=== PATIENT | female | born 1985 | race Caucasian/White ===

== ENCOUNTER 2019-12-13 08:31 | Emergency (ER) | payer OTHER, BC ==
--- NOTE | 2019-12-13 09:12 | EDM.PDOC ---
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 She said when she fell her right foot was under her left knee, and during her fall she hit her kneecap on the ground. She has some discomfort and pain with walking but she is able to bear weight without much difficulty. She also feels a clicking sensation in the right lateral knee, discussed this with our HR department and it was recommended she come to the emergency room for evaluation. No other injury other than the right knee. Onset: Sudden Duration: Hour(s): (Within the last 2 hours) Location: Reports: Lower Extremity, Right Quality: Reports: Ache Worsens with: Reports: Other (Weightbearing), Movement Associated Symptoms: Reports: Other (Clicking sensation in the right knee when walking) - Related Data Allergies Allergy/AdvReac Type Severity Reaction Status Date / Time bee venom protein (honey bee) Allergy Anaphylactic Verified 12/13/19 08:48 Shock codeine Allergy Rash Verified 12/13/19 08:48 epinephrine Allergy Other Verified 12/13/19 08:48 lidocaine Allergy Rash Verified 12/13/19 08:48 Home Meds: Home Meds NK [No Known Home Meds] 12/13/19 [History] Past Medical History - Past Surgical History Head Surgeries/Procedures: Reports: None Social & Family History - Tobacco Use Tobacco Use Status *Q: Never Tobacco User Second Hand Smoke Exposure: No Review of Systems - Review of Systems Review Of Systems: See Below Constitutional: Denies: Fever Respiratory: Reports: No Symptoms Cardiovascular: Reports: No Symptoms GI/Abdominal: Reports: No Symptoms Skin: Reports: Other (Abrasion on the knee) Neurological: Denies: Paresthesia ED EXAM, GENERAL - Physical Exam Exam: See Below Exam Limited By: No Limitations General Appearance: Alert, No Apparent Distress Head: Atraumatic Respiratory/Chest: No Respiratory Distress Extremities: Other (Remainder of exam was limited to the right leg. There is a very superficial abrasion over the patella, no erythema or laceration. No significant effusion of the knee. On palpation she is tender along the superior lateral pole of the patella but is able to extend the knee and hold against gravity without difficulty. Some discomfort when stressing the lateral component of the knee) Neurological: Alert, Oriented Psychiatric: Normal Affect, Normal Mood Course - Vital Signs Last Recorded V/S: Last Vital Signs Temp 98.5 F 12/13/19 08:52 Pulse 92 12/13/19 08:52 Resp 16 12/13/19 08:52 BP 150/90 H 12/13/19 08:52 Pulse Ox 98 12/13/19 08:52 - Re-Assessments/Exams Free Text/Narrative Re-Assessment/Exam: 12/13/19 09:11 Right knee x-ray was obtained. 12/13/19 09:36 Knee x-ray looks normal. Patient was with a 4 inch Nabil wrap to support the knee and can resume normal activity as tolerated. Recheck next week if not improving satisfactorily. Return sooner if worsening such as significant swelling of the knee or increased pain. Departure - Departure Time of Disposition: 09:43 Disposition: Home, Self-Care 01 Clinical Impression: Contusion of knee, right Qualifiers: Encounter type: initial encounter Qualified Code(s): S80.01XA - Contusion of right knee, initial encounter - Discharge Information Instructions: Contusion Referrals: PCP,None [Primary Care Provider] - Forms: ED Department Discharge Care Plan Goals: Wrap knee for comfort and support, increase activity as tolerated and recheck next week if not improving satisfactorily. Return sooner if worsening such as significant swelling of the knee or increased pain. Sepsis Event Note (ED) - Evaluation Sepsis Screening Result: No Definite Risk - Focused Exam Vital Signs: Vital Signs Temp Pulse Resp BP Pulse Ox 12/13/19 08:52 98.5 F 92 16 150/90 H 98 12/13/19 08:48 98.5 F 92 16 150/90 H 98
--- NOTE | 2019-12-13 10:16 | CR ---
Knee 3V Rt CLINICAL HISTORY: Fall, pain FINDINGS: No acute fracture or dislocation is noted. There are no osseous lesions. Articular surfaces are smooth. Impression: Negative
== END 2019-12-13 09:43 | disposition home or self-care (01) ==
LOC: JP.ED 08:31
DX: S80.01XA Contusion of right knee, initial encounter (principal); Z91.030 Bee allergy status; Z88.5 Allergy status to narcotic agent; Z88.4 Allergy status to anesthetic agent; W22.8XXA Striking against or struck by other objects, initial encounter
CPT/HCPCS: 73562-26-RT; 73562-RT; 99282; 99283-25

== ENCOUNTER 2022-08-31 17:26 | Emergency (ER) | payer BC ==
[2022-08-31] MEDS ORDERED: Ketorolac 30 MG/ML SDV IM ONE (18:26)
[2022-08-31] MEDS ORDERED: Dexamethasone 4 MG/ML SDV IVPUSH STA (19:35)
[2022-08-31] MEDS ORDERED: Sodium Chloride 0.9% 10 ML Syringe FLUSH PRN (19:35)
[2022-08-31] MEDS ORDERED: Prazosin 1 MG Cap PO STA (20:23)
[2022-08-31] MEDS ORDERED: Diazepam 5 MG Tab PO ONE (21:48)
== END 2022-08-31 22:34 | disposition home or self-care (01) ==
LOC: JP.ED 17:26
DX: G90.59 Complex regional pain syndrome I of other specified site (principal); M79.18 Myalgia, other site; J45.909 Unspecified asthma, uncomplicated; Z91.030 Bee allergy status; Z88.5 Allergy status to narcotic agent; Z88.4 Allergy status to anesthetic agent; Z90.49 Acquired absence of other specified parts of digestive tract
CPT/HCPCS: 96372; 96374; 99283; A9270; J1100; J1885; J3490

== ENCOUNTER 2022-10-12 08:06 | Emergency (ER) | payer BC ==
[2022-10-12] MEDS ORDERED: Ketorolac 30 MG/ML SDV IM ONE (09:40)
== END 2022-10-12 10:51 | disposition home or self-care (01) ==
LOC: JP.ED 08:06
DX: M54.50 Low back pain, unspecified (principal); G89.29 Other chronic pain; J45.909 Unspecified asthma, uncomplicated; K21.9 Gastro-esophageal reflux disease without esophagitis; Z88.8 Allergy status to other drugs, medicaments and biological substances; Z88.4 Allergy status to anesthetic agent; Z88.5 Allergy status to narcotic agent; Z91.030 Bee allergy status; Z79.899 Other long term (current) drug therapy
CPT/HCPCS: 96372; 99283; J1885

== ENCOUNTER 2022-11-19 15:01 | Emergency (ER) | payer BC ==
[2022-11-19] MEDS ORDERED: diphenhydrAMINE 50 MG/ML SDV IVPUSH ONE (15:27)
[2022-11-19] MEDS ORDERED: Magnesium Sulfate/Water 2 GM in Premix Bag 1 BAG IV ONE (15:27)
[2022-11-19] MEDS ORDERED: Ketorolac 30 MG/ML SDV IVPUSH ONE (15:27)
[2022-11-19] MEDS ORDERED: Sodium Chloride 0.9% 1,000 ML IV SCH (15:30)
[2022-11-19] MEDS ORDERED: Metoclopramide 10 MG/2 ML SDV IV ONE (15:40)
== END 2022-11-19 19:11 | disposition home or self-care (01) ==
LOC: JP.ED 15:01
DX: G43.909 Migraine, unspecified, not intractable, without status migrainosus (principal); K21.9 Gastro-esophageal reflux disease without esophagitis; J45.909 Unspecified asthma, uncomplicated; Z79.899 Other long term (current) drug therapy; Z88.5 Allergy status to narcotic agent; Z88.8 Allergy status to other drugs, medicaments and biological substances; Z91.030 Bee allergy status
CPT/HCPCS: 96365; 96366; 96367; 96375; 99283-25; 99284; J1200; J1885; J2765; J3475; J3490; J7030